=== PATIENT | male | born 1980 | race Caucasian/White ===

== ENCOUNTER 2022-07-15 16:03 | Emergency (ER) | payer MEDICARE, MEDICAID ==
[2022-07-15] MEDS ORDERED: Amoxicillin/Clavulanate K 875-125 MG Tab PO ONE (17:30)
== END 2022-07-15 17:29 | disposition home or self-care (01) ==
LOC: FB.ED 16:03
DX: N49.2 Inflammatory disorders of scrotum (principal); F17.210 Nicotine dependence, cigarettes, uncomplicated
CPT/HCPCS: 87070; 87205; 99283; A9270